=== PATIENT | female | born 1965 | race Caucasian/White ===

== ENCOUNTER → 2022-02-26 14:14 | Outpatient (BNVA) | payer OTHER, SELFPAY | PROVIDERS: Visit Provider Internal Medicine | DX: Z13.89 Encounter for screening for other disorder (principal) | CPT/HCPCS: 73610; 99203 ==

== ENCOUNTER → 2022-03-01 14:25 | Outpatient (BNVA) | payer OTHER, SELFPAY | PROVIDERS: PCP Internal Medicine; Visit Provider Physician Assistant | DX: S93.401A Sprain of unspecified ligament of right ankle, initial encounter (principal) | CPT/HCPCS: 99202 ==

== ENCOUNTER → 2022-03-22 11:23 | Outpatient (BNVA) | payer OTHER, SELFPAY | PROVIDERS: PCP Internal Medicine; Visit Provider Physician Assistant | DX: S93.401D Sprain of unspecified ligament of right ankle, subsequent encounter (principal) | CPT/HCPCS: 99212 ==

== ENCOUNTER 2022-06-03 08:17 | Outpatient (REF) | payer OTHER, SELFPAY ==
[2022-06-03 08:38] LABS: MANUAL DIFF FLAG NO
[2022-06-03 09:18] LABS: Basophils Percent Auto 0.3 % (0-2); Eosinophils Absolute Auto 0.2 X10*3/uL (0.0-0.4); Eosinophils Percent Auto 2.2 % (0-4); Hematocrit 43.2 % (37.0-47.0); Hemoglobin 14.3 g/dl (12.0-16.0); Imm Gran Abs Auto 0.03 X10*3/uL (0.00-0.03); Imm Gran Pct Auto 0.4 % (0.0-0.4); Lymphocytes Absolute Auto 2.3 X10*3/uL (1.2-4.9); Lymphocytes Percent Auto 33.9 % (20-40); Mean Corpuscular HGB Conc 33.1 g/dl (31.0-35.0); Mean Corpuscular Hemoglobin 29.7 pg (27.0-33.0); Mean Corpuscular Volume 89.6 fL (80.0-98.0); Mean Platelet Volume 10.3 fL (9.4-12.3); Monocytes Absolute Auto 0.7 X10*3/uL (0.1-1.2); Monocytes Percent Auto 9.6 % (2-11); Neutrophils Absolute Auto 3.7 x10*3/uL (2.0-8.3); Neutrophils Percent Auto 53.6 % (45-73); Platelet Count 212 X10*3/uL (160-400); Red Blood Count 4.82 X10*6/uL (4.20-5.50); Red Cell Distribution Width 13.1 % (11.0-16.0); White Blood Count 6.9 X10*3/uL (4.8-10.8)
[2022-06-03 09:23] LABS: Appearance Urine Cloudy; Color Urine Yellow; Glucose Urine UA Negative (Negative); Leukocyte Esterase Urine Negative (Negative); Nitrite Urine Negative (Negative); PH 5.5 (5.0-9.0); Specific Gravity - Urine 1.015 (1.005-1.025); Urine Blood Negative (Negative); Urine Ketones Negative (Negative); Urine Protein Negative (Neg-Trace)
[2022-06-03 09:26] LABS: Estimated Average Glucose 105 mg/dL; Hemoglobin A1c % 5.3 %
[2022-06-03 09:58] LABS: Alanine Aminotransferase 21 U/L (0-31); Albumin Level 4.3 g/dL (3.5-5.0); Alkaline Phosphatase 94 U/L (39-117); Anion Gap 13 (12-20); Aspartate Amino Transferase 20 U/L (5-31); Bilirubin Total 0.6 mg/dL (0.0-1.0); Blood Urea Nitrogen 18 mg/dL (9-16); Calcium 9.2 mg/dL (8.4-10.2); Carbon Dioxide 24 mmol/L (22-29); Chloride 108 mmol/L (96-108); Cholesterol 201 mg/dL; Estimated Glomerular Filt Rate > 60; Glucose Random 104 mg/dL (60-115); HDL Cholesterol 62 mg/dL; LDL Cholesterol Calculated 123 mg/dl; Potassium 4.2 mmol/L (3.3-5.1); Sodium 141 mmol/L (135-145); Total Protein 6.9 g/dL (6.5-8.0); Triglycerides 84 mg/dL
[2022-06-03 10:10] LABS: ~Hepatitis C Antibody Nonreactive (Nonreactive)
[2022-06-03 10:21] LABS: Vitamin D 25-OH Total 28.9 ng/mL (>30)
[2022-06-03 10:28] LABS: Reflex LDLD? No
== END 2022-06-03 08:18 | disposition home or self-care (01) ==
LOC: HO.LAB 08:17
PROVIDERS: PCP Internal Medicine; Visit Provider Internal Medicine
DX: Z00.00 Encounter for general adult medical examination without abnormal findings (principal)
CPT/HCPCS: 36415; 80053; 80061; 81003; 82306; 83036; 85025; 86803

== ENCOUNTER 2022-06-14 07:28 | Outpatient (REF) | payer OTHER, SELFPAY ==
--- NOTE | ~2022-06-14 | MR_ITS ---
EXAMINATION: MR ANGIOGRAPHY BRAIN WITHOUT CONTRAST CLINICAL INFORMATION: Cerebral aneurysm. COMPARISON: Head MRA from 02/07/2021. TECHNIQUE: 3D nqug-nl-sootey MR angiography was performed through the brain without the use of intravenous gadolinium. 3D postprocessing including acquisition of multiplanar MIP reformats are obtained at the technologist workstation and utilized for image interpretation. Stenoses are assessed in accordance with NASCET criteria unless otherwise indicated. FINDINGS: Similar to prior exam, there is a patulous appearance of the M1-M2 junction of the right MCA with 4 distinct branching vessels. There is a minimal 0.1 cm excrescence projecting anteriorly from the M1-M2 junction of the right MCA (unchanged). Otherwise, normal flow-related signal within the anterior circulation without evidence of focal stenosis or occlusion of the intradural internal carotid, middle cerebral, or anterior cerebral arteries. Similar to prior exam, there is minimal 0.1 cm excrescence projecting posteriorly to the left from the basilar tip (unchanged). Otherwise, normal flow-related signal within the posterior circulation without evidence of focal stenosis or occlusion of the intradural vertebral, basilar, superior cerebellar, or posterior cerebral arteries. No demonstrated new intradural aneurysms. No additional significant abnormalities on limited evaluation of the intracranial structures. Mild mucosal thickening of the paranasal sinuses. Mucous retention cyst within the maxillary sinuses. MR/MR angio head wo con IMPRESSION: 1. Similar to prior exam, there are minimal 0.1 cm excrescences projecting from the M1-M2 junction of the right MCA as well as the basilar tip. These may represent tiny aneurysms (unchanged). 2. Otherwise, normal MRA of the head.
== END 2022-06-14 07:29 | disposition home or self-care (01) ==
LOC: HO.MRI 07:28
PROVIDERS: Visit Provider Internal Medicine
DX: I67.1 Cerebral aneurysm, nonruptured (principal)
CPT/HCPCS: 70544

== ENCOUNTER 2023-01-09 14:42 | Outpatient (REF) | payer OTHER, SELFPAY ==
--- NOTE | ~2023-01-09 | MM_ITS ---
EXAMINATION: MM SCREENING DIGITAL BREAST TOMOSYNTHESIS, BILATERAL CLINICAL INFORMATION: Screening. Asymptomatic. The lifetime risk of breast cancer based on the Tyrer-Cuzick Model is 11%. COMPARISON: Mammography: 11/09/2021, 11/07/2020, 09/23/2019 ([facility]) TECHNIQUE: Digital breast tomosynthesis is performed in both the craniocaudal and mediolateral oblique views along with computer-aided detection (CAD). Synthesized 2D images are generated from the tomosynthesis. FINDINGS: The breasts are heterogeneously dense, which may obscure small masses (ACR BI-RADS breast composition Category c). There is a fibronodular parenchymal pattern is similar to prior outside studies. No developing density or architectural abnormality. Accessory breast tissue upper right breast on MLO view is similar to the outside exams. There are no significant masses, abnormal calcifications, or other abnormalities. The axilla and skin contours are unremarkable. MM/MM tomosynthesis screening BI IMPRESSION: No mammographic evidence of malignancy. ASSESSMENT: BI-RADS 2: Benign RECOMMENDATION: Routine annual mammography screening. This patient's information was entered into a reminder system with a target due date for their next mammogram.
== END 2023-01-09 14:43 | disposition home or self-care (01) ==
LOC: HO.MAMMO 14:42
PROVIDERS: PCP Internal Medicine; Visit Provider Internal Medicine
DX: Z12.31 Encounter for screening mammogram for malignant neoplasm of breast (principal)
CPT/HCPCS: 77063; 77067

== ENCOUNTER 2023-06-30 09:47 | Outpatient (REF) | payer OTHER, SELFPAY ==
[2023-06-30 10:10] LABS: MANUAL DIFF FLAG NO
[2023-06-30 10:30] LABS: Basophils Percent Auto 0.2 % (0-2); Eosinophils Absolute Auto 0.2 X10*3/uL (0.0-0.4); Eosinophils Percent Auto 2.4 % (0-4); Hematocrit 39.2 % (37.0-47.0); Imm Gran Abs Auto 0.07 X10*3/uL (0.00-0.03); Imm Gran Pct Auto 0.8 % (0.0-0.4); Lymphocytes Absolute Auto 2.6 X10*3/uL (1.2-4.9); Lymphocytes Percent Auto 28.6 % (20-40); Mean Corpuscular HGB Conc 33.2 g/dl (31.0-35.0); Mean Corpuscular Volume 90.5 fL (80.0-98.0); Monocytes Absolute Auto 0.8 X10*3/uL (0.1-1.2); Monocytes Percent Auto 8.9 % (2-11); Neutrophils Absolute Auto 5.5 x10*3/uL (2.0-8.3); Neutrophils Percent Auto 59.1 % (45-73); Platelet Count 246 X10*3/uL (160-400); Red Blood Count 4.33 X10*6/uL (4.20-5.50); Red Cell Distribution Width 13.4 % (11.0-16.0); White Blood Count 9.2 X10*3/uL (4.8-10.8)
[2023-06-30 10:48] LABS: Estimated Average Glucose 103 mg/dL; Hemoglobin A1c % 5.2 % (<6.0)
[2023-06-30 11:16] LABS: Cholesterol 186 mg/dL (<200); HDL Cholesterol 50 mg/dL (>40); LDL Cholesterol Calculated 120 mg/dL (<100); Triglycerides 83 mg/dL (<150)
[2023-06-30 11:24] LABS: Alanine Aminotransferase 66 U/L (0-31); Alkaline Phosphatase 99 U/L (39-117); Anion Gap 10 (12-20); Aspartate Amino Transferase 38 U/L (5-31); Bilirubin Total 0.5 mg/dL (0.0-1.0); Blood Urea Nitrogen 15 mg/dL (9-16); Calcium 9.1 mg/dL (8.4-10.2); Carbon Dioxide 26 mmol/L (22-29); Chloride 109 mmol/L (96-108); Estimated Glomerular Filt Rate > 60; Glucose Random 98 mg/dL (60-115); Sodium 141 mmol/L (135-145); Total Protein 7.1 g/dL (6.5-8.0)
[2023-06-30 11:28] LABS: Vitamin D 25-OH Total 36.8 ng/mL (>30)
[2023-06-30 11:44] LABS: Reflex LDLD? No
[2023-06-30 11:48] LABS: Appearance Urine Clear; Color Urine Yellow; Glucose Urine UA Negative (Negative); Leukocyte Esterase Urine Negative (Negative); Nitrite Urine Negative (Negative); PH 5.5 (5.0-9.0); Specific Gravity - Urine 1.025 (1.005-1.025); Urine Blood Negative (Negative); Urine Ketones Negative (Negative); Urine Protein Negative (Neg-Trace)
[2023-06-30 11:53] LABS: ~Hepatitis C Antibody Nonreactive (Nonreactive)
== END 2023-06-30 09:48 | disposition home or self-care (01) ==
LOC: HO.LAB 09:47
PROVIDERS: Visit Provider Internal Medicine
DX: Z00.00 Encounter for general adult medical examination without abnormal findings (principal); Z11.59 Encounter for screening for other viral diseases; R73.01 Impaired fasting glucose; E55.9 Vitamin D deficiency, unspecified
CPT/HCPCS: 36415; 80053; 80061; 81003; 82306; 83036; 85025; 86803

== ENCOUNTER 2023-08-11 15:14 | Outpatient (REF) | payer OTHER, SELFPAY ==
--- NOTE | ~2023-08-11 | MR_ITS ---
EXAMINATION: MR ANGIOGRAPHY BRAIN WITHOUT CONTRAST CLINICAL INFORMATION: Cerebral aneurysm. COMPARISON: Head MRA from 06/14/2022 and 02/07/2021. TECHNIQUE: 3D qukj-rh-mrqaoz MR angiography was performed through the brain without the use of intravenous gadolinium. 3D postprocessing including acquisition of multiplanar MIP reformats are obtained at the technologist workstation and utilized for image interpretation. Stenoses are assessed in accordance with NASCET criteria unless otherwise indicated. FINDINGS: Similar to prior exam, there is a mildly patulous appearance of the M1-M2 junction of the right MCA with 4 distinct branching vessels. Redemonstrated minimal 0.1 cm excrescence projecting anteriorly from the M1-M2 junction of the right MCA (unchanged). Mild atherosclerotic irregularity of the proximal petrous segment of the left internal carotid artery. Otherwise, normal flow-related signal within the anterior circulation without evidence of focal stenosis or occlusion of the intradural internal carotid, middle cerebral, or anterior cerebral arteries. Redemonstrated minimal 0.1 cm excrescence projecting posteriorly and to the left from the basilar tip (unchanged). Otherwise, normal flow-related signal within the posterior circulation without evidence of focal stenosis or occlusion of the intradural vertebral, basilar, superior cerebellar, or posterior cerebral arteries. No demonstrated new intradural aneurysms. No additional significant abnormalities on limited evaluation of the intracranial structures. Mild mucosal thickening of the paranasal sinuses. Mucous retention cysts within the maxillary sinuses. MR/MR angio head wo con IMPRESSION: 1. Similar to prior exam, there are minimal 0.1 cm excrescences projecting from the M1-M2 junction of the right MCA and the basilar tip. These may represent tiny aneurysms (unchanged). 2. Otherwise, MRA of the head without flow-limiting stenosis or occlusion.
== END 2023-08-11 15:15 | disposition home or self-care (01) ==
LOC: HO.MRI 15:14
PROVIDERS: PCP Internal Medicine; Visit Provider Internal Medicine
DX: I67.1 Cerebral aneurysm, nonruptured (principal)
CPT/HCPCS: 70544

== ENCOUNTER → 2024-01-12 15:00 | Outpatient (BNV) | payer OTHER, SELFPAY | PROVIDERS: PCP Internal Medicine; Visit Provider Radiology Diagnostic Radiology | DX: Z12.31 Encounter for screening mammogram for malignant neoplasm of breast (principal) | CPT/HCPCS: 77063; 77067 ==

== ENCOUNTER 2024-01-12 15:05 | Outpatient (REF) | payer OTHER, SELFPAY | END 2024-01-12 15:06 | disposition home or self-care (01) | LOC: HO.MAMMO 15:05 | PROVIDERS: PCP Internal Medicine; Visit Provider Internal Medicine | DX: Z12.31 Encounter for screening mammogram for malignant neoplasm of breast (principal) | CPT/HCPCS: 77063; 77067 ==

== ENCOUNTER 2024-06-22 08:10 | Outpatient (REF) | payer OTHER, SELFPAY ==
[2024-06-22 08:56] LABS: MANUAL DIFF FLAG NO
[2024-06-22 09:23] LABS: Basophils Percent Auto 0.5 % (0-2); Eosinophils Absolute Auto 0.2 X10*3/uL (0.0-0.4); Eosinophils Percent Auto 2.8 % (0-4); Hematocrit 42.5 % (37.0-47.0); Hemoglobin 14.1 g/dl (12.0-16.0); Imm Gran Abs Auto 0.03 X10*3/uL (0.00-0.03); Imm Gran Pct Auto 0.5 % (0.0-0.4); Lymphocytes Absolute Auto 2.1 X10*3/uL (1.2-4.9); Lymphocytes Percent Auto 32.3 % (20-40); Mean Corpuscular HGB Conc 33.2 g/dl (31.0-35.0); Mean Corpuscular Hemoglobin 30.5 pg (27.0-33.0); Monocytes Absolute Auto 0.7 X10*3/uL (0.1-1.2); Monocytes Percent Auto 10.6 % (2-11); Neutrophils Absolute Auto 3.4 x10*3/uL (2.0-8.3); Neutrophils Percent Auto 53.3 % (45-73); Platelet Count 224 X10*3/uL (160-400); Red Blood Count 4.62 X10*6/uL (4.20-5.50); Red Cell Distribution Width 13.5 % (11.0-16.0); White Blood Count 6.3 X10*3/uL (4.8-10.8)
[2024-06-22 09:26] LABS: Appearance Urine Cloudy; Color Urine Yellow; Glucose Urine UA Negative (Negative); Leukocyte Esterase Urine Negative (Negative); Nitrite Urine Negative (Negative); PH 5.5 (5.0-9.0); Specific Gravity - Urine 1.025 (1.005-1.025); Urine Blood Negative (Negative); Urine Ketones Negative (Negative); Urine Protein Negative (Neg-Trace)
[2024-06-22 09:39] LABS: Estimated Average Glucose 105 mg/dL; Hemoglobin A1c % 5.3 % (<6.0); Total Hemoglobin (HGBA1C) 3695.7738 umol/L
[2024-06-22 10:53] LABS: Alanine Aminotransferase 23 U/L (0-31); Alkaline Phosphatase 93 U/L (39-117); Anion Gap 12 (12-20); Aspartate Amino Transferase 23 U/L (5-31); Bilirubin Total 0.5 mg/dL (0.0-1.0); Blood Urea Nitrogen 13 mg/dL (9-16); Carbon Dioxide 23 mmol/L (22-29); Chloride 111 mmol/L (96-108); Estimated Glomerular Filt Rate > 60; Glucose Random 96 mg/dL (60-115); HDL Cholesterol 56 mg/dL (>40); Potassium 4.1 mmol/L (3.3-5.1); Sodium 142 mmol/L (135-145); Total Protein 6.8 g/dL (6.5-8.0); Vitamin D 25-OH Total 30.5 ng/mL (>30)
[2024-06-22 11:00] LABS: HBS Num1 39.21 mIU/mL (0-7.99); HBsAGNum1 0.34 S/CO (0.00-0.99); Hepatitis B Surface Antigen Negative (Negative); ~HepC Num1 0.06 S/CO (0.00-0.79); ~Hepatitis B Surface Antibody REACTIVE (Nonreactive); ~Hepatitis C Antibody Nonreactive (Nonreactive)
[2024-07-05 08:40] LABS: Lipoprotein Asso Phospholip A2 94; Liver Fibrosis Interpretation no fibrosis; Liver Fibrosis Score 0.11; Liver Fibrosis Stage F0; Nec Inflam Act Grade A0; Nec Inflam Act Interpretation no activity; Nec Inflam Act Score 0.04
[2024-07-05 08:41] LABS: FIB-Alpha-2-Macroglobulin 164; FIB-Apolipoprotein A1 156; FIB-Haptoglobin 142
[2024-07-05 08:42] LABS: FIB-ALT 15; FIB-GGT 26; FIB-Total Bilirubin 0.4
[2024-07-05 08:43] LABS: Reference ID 5219966
[2024-07-05 08:44] LABS: Phosphatidylethanol 16:0-18:1 NEGATIVE; Phosphatidylethanol 16:0-18:2 NEGATIVE
== END 2024-06-22 08:11 | disposition home or self-care (01) ==
LOC: HO.LAB 08:10
PROVIDERS: Visit Provider Internal Medicine
DX: Z00.00 Encounter for general adult medical examination without abnormal findings (principal); E55.9 Vitamin D deficiency, unspecified; R73.01 Impaired fasting glucose; Z11.59 Encounter for screening for other viral diseases; K75.81 Nonalcoholic steatohepatitis (NASH); Z72.89 Other problems related to lifestyle
CPT/HCPCS: 36415; 80053; 80321; 81003; 81596; 82306; 83036; 83698; 83718; 85025; 86706; 86803; 87340

== ENCOUNTER 2024-07-08 10:51 | Outpatient (REF) | payer OTHER, SELFPAY | END 2024-07-08 10:52 | disposition home or self-care (01) | LOC: HO.MRI 10:51 | PROVIDERS: PCP Internal Medicine; Visit Provider Internal Medicine | DX: I67.1 Cerebral aneurysm, nonruptured (principal) | CPT/HCPCS: 70544 ==

== ENCOUNTER → 2024-09-07 08:45 | Outpatient (BNV) | payer OTHER, SELFPAY | PROVIDERS: PCP Internal Medicine; Visit Provider Radiology Diagnostic Radiology | DX: E28.39 Other primary ovarian failure (principal) | CPT/HCPCS: 77080 ==

== ENCOUNTER 2024-09-07 08:54 | Outpatient (REF) | payer OTHER, SELFPAY ==
--- NOTE | ~2024-09-07 | MM_ITS ---
EXAMINATION: DXA BONE DENSITY AXIAL HISTORY: Estrogen deficiency TECHNIQUE: [employer] Dual energy absorptiometry (DEXA) of the lumbar spine, total left hip, and femoral neck was performed. COMPARISON: There are no prior studies for comparison. FINDINGS: The bone mineral density of the lumbar spine is 1.049 with a T-score of -1.1, and a Z-score of -0.4. The bone mineral density of the left total hip is 0.939 with a T-score of -0.5, and a Z-score of 0.0. The bone mineral density of the left femoral neck is 0.850 with a T-score of -1.4, and a Z-score of -0.5. FRACTURE RISK: The FRAX index suggests a risk of major osteoporotic fracture of 7.0%, and of hip fracture 0.5%. MM/XR DEXA axial skeleton IMPRESSION: Based on bone mineral density, and according to World Health Organization (WHO) criteria, the diagnosis is consistent with osteopenia. All bone density values are in grams per centimeter squared (g/cm2). Statistically, 68% of repeat scans fall within 1 SD (+/- 0.010 g/cm2 for AP spine L1-L4) and 1 SD (+/- 0.012 g/cm2 for femur total) FRAX is a trademark of the [employer]'s [employer] Met[employer] Disease, a World Health Organization (WHO) Collaborating Center. Electronically signed by: Sven Sanford MD 09/09/2024 07:42 AM EST
== END 2024-09-07 08:55 | disposition home or self-care (01) ==
LOC: HO.MAMMO 08:54
PROVIDERS: PCP Internal Medicine; Visit Provider Internal Medicine
DX: Z13.820 Encounter for screening for osteoporosis (principal); E28.319 Asymptomatic premature menopause
CPT/HCPCS: 77080

== ENCOUNTER 2025-01-17 15:02 | Outpatient (REF) | payer OTHER, SELFPAY ==
--- OUTSIDE RECORDS SUMMARY | 2025-01-17 16:48 | XMS_ITS | Patient Health Record ---
Author Organization [facility] Address [address] [place] [phone] Care Team Providers Care Brine Well Operator Name Role Phone [facility] Primary Care Provider Maira Young Unavailable [phone] Allergies Allergen (clinical drug ingredient) Drug/Non Drug Allergy documented on EMR Reaction Allergy Type Onset Date Status bee sting (uncoded) Unknown Allergy Active Results Component Value Reference Range Notes [facility] Dexa Axial Skeleton Reviewed date:09/09/2024 03:14:38 PM Interpretation: Performing Lab: Notes/Report: [facility] Dexa Axial Skeleton Reviewed date:09/09/2024 03:14:38 PM Interpretation: Performing Lab: Notes/Report: Reason For Referral No Information Medications Medication SIG (Take, Route, Frequency, Duration) Notes Start Date End Date Status Jublia 10 % 1 application Externally Once a day for 90 days 12/20/2024 12/15/2025 Active Ativan 1 MG 1 tablet as needed Orally Once a day for 7 days 01/11/2025 Active Vitamin D3 2000 UNIT 1 capsule Orally On ce a day for 30 Not-Taking EpiPen 2-Harsh 0.3 MG/0.3ML as directed Injection as neded for 2 days Active Cetirizine HCl 10 MG 1 tablet Orally Onc e a day for 30 day(s) Active Ubrelvy 100 MG TAKE 1 TABLET BY LESLI TH EVERY DAY ONCE A DAy 30 DAYS PER INSURANCE for 30 Active Immunizations Vaccine Route Administration Date Status Comme nts *Tdap Unknown 08/21/2007 Administered COVID COMIRNATY Pfizer Unknown 08/14/2023 Administered COVID-19 Pfizer BiValent Booster Unknown 06/07/2022 Administered TSWAB-17-Utjkmyh Vaccine Unknown 07/26/2021 Administere d JJJTZ-04-Prowav Vaccine Unknown 08/22/2020 Administered SWJKY-87-Kttbos Vaccine Unknown 09/12/2020 Administered Hep A, adult Unknown 08/06/2019 Administered Hep A, adult Unknown 02/14/2020 Administered Hep B, adult (2 dose schedule) Unknown 01/16/1995 Administered Influenza IM Intramuscular 05/20/2017 Administered Influenza IM Intramuscular 05/25/2018 Administered Influenza Unknown 05/03/2019 Administered Influenza IM Intramuscular 04/25/2020 Administered Influenza (split), 3 yrs and above Unknown 05/07/2024 Administered Influenza Vaccine, Seasonal, Quadrivalent, Recombinant, Preservative Free Unknown 05/08/2023 Administered Influenza-Afluria (IIV4) Unknown 05/09/2022 Administere d Influenza-Afluria (IIV4) Unknown 05/08/2023 Administere d Rubella (CVX 94) Unknown 11/03/1970 Administered Td (adult) preservative free Unknown 02/18/2002 Administered Td (adult) preservative free Unknown 08/04/2006 Administered Td (adult) preservative free IM Intramuscular 01/19/2018 Administered Td (adult) preservative free Unknown 01/25/2019 Pending Social History Tobacco Use: Social History Observation Description Date Details (start date - stop date) Former Smoker NA - NA AUDIT-C (Standard) Question Answer Notes Did you have a drink contain ing alcohol in the past year? Yes How often did you have six o r more drinks on one occasion in the past year? Never (0 point) How many drinks did you have on a typical day when you were drinking in the past year? 1 or 2 drinks (0 point) How often did you have a dri nk containing alcohol in the past year? 2 to 4 times a month (2 points) Points 2 Interpretation Negative Tobacco Control (Standard) Question Answer Notes Tobacco use: Former smoker How long has it been since you last smoked? 5-10 years Problems Problem Type SNOMED Code ICD Code Onset Dates Problem Status W/U Status Risk Notes Problem Premature menopause (530630315) Asymptomatic premature menopause (E28.319) Active confirmed Problem Vitamin D deficiency (44216590) Vitamin D deficiency, unspecified (E55.9) Active confirmed Problem Tobacco user (828193982) Nicotine dependence, cigarettes, in remission (F17.211) Active confirmed Problem Migraine without aura (80583570) Migraine without aura, not intractable, with status migrainosus (G43.001) Active confirmed Problem Nonruptured cerebral aneurysm (56059483) Cerebral aneurysm, nonruptured (I67.1) Active confirmed Problem 087531349 Nonalcoholic steatohepatitis (MUNOZ) (K75.81) Active confirmed Problem Cervical radiculopathy (77231269) Radiculopathy, cervical region (M54.12) Active confirmed Problem Impaired fasting glucose (261516606) Impaired fasting glucose (R73.01) Active confirmed Problem Irritable bowel syndrome characterized by constipation (905150521) Irritable bowel syndrome with constipation (K58.1) Active confirmed Problem Cervicalgia (69829720) Cervicalgia (M54.2) Inactive confirmed Problem Derangement of anterior horn of medial meniscus (8863464) Derangement of anterior horn of medial meniscus due to old tear or injury, left knee (M23.212) Problem resolved confirmed Vital Signs Heart Rate 86 /min 06/21/2024 Temperature 96.4 degrees Fahrenheit 06/21/2024 Blood pressure diastolic 68 mm Hg 06/21/2024 Oximetry 98 % 06/21/2024 Height 5 ft 5 in in 06/21/2024 Blood pressure systolic 116 mm Hg 06/21/2024 Weight 173 lbs 06/21/2024 BMI 28.79 kg/m2 06/21/2024 Encounters Encounter Location Date Provider Diagnosis [facility] [address] [id number] 06/21/2024 [facility] Encounter for genera l adult medical examination without abnormal findings Z00.00 ; Cerebral aneurysm, nonruptured I67.1 ; Migraine without aura, not intractable, with status migrainosus G43.001 ; Nonalcoholic steatohepatitis (MUNOZ) K75.81 ; Impaired fasting glucose R73.01 ; Nicotine dependence, cigarettes, in remission F17.211 ; Vitamin D deficiency, unspecified E55.9 ; Encounter for screening for malignant neoplasm of colon Z12.11 ; Encounter for screening mammogram for malignant neoplasm of breast Z12.31 ; Encounter for screening for osteoporosis Z13.820 ; Encounter for screening for cardiovascular disorders Z13.6 ; Encounter for immunization Z23 ; Encounter for antibody response examination Z01.84 ; Encounter for screening for other viral diseases Z11.59 and Asymptomatic premature menopause E28.319 [facility] [address] [place] [address] [id number] 01/20/2024 [facility] [address] [facility] [address] [place] [address] [id number] 05/11/2024 [facility] [address] [facility] [address] [place] [address] [id number] 08/02/2024 Paddy Chavez Migraine without aur a, not intractable, with status migrainosus G43.001 [facility] [address] [facility] [address] [place] [address] [id number] 08/03/2024 [facility] [address] [facility] [address] [place] [address] [id number] 08/11/2024 [facility] [address] [facility] [address] [place] [address] [id number] 12/24/2024 [facility] [address] [facility] [address] [place] [address] [id number] 01/21/2024 [facility] [address] [facility] [address] [place] [address] [id number] 03/08/2024 [facility] [address] [facility] [address] [place] [address] [id number] 03/15/2024 [facility] [address] [facility] [address] [place] [address] [id number] 03/16/2024 Paddy Chavez Migraine without aur a, not intractable, with status migrainosus G43.001 [facility] [address] [facility] [address] [place] [address] [id number] 03/30/2024 [facility] [address] [facility] [address] [place] [address] [id number] 04/23/2024 [facility] [address] [facility] [address] [place] [address] [id number] 04/23/2024 [facility] [address] [facility] [address] [place] [address] [id number] 05/07/2024 [facility] [address] [facility] [address] [place] [address] [id number] 08/03/2024 aPddy Chavez Migraine without aur a, not intractable, with status migrainosus G43.001 [facility] [address] [id number] 08/09/2024 P[facility] MD [address] [id number] 08/23/2024 [facility] MD [address] [id number] 09/27/2024 Maira Chavez MD [address] [id number] 11/08/2024 Paddy [facility] MD [address] [id number] 12/20/2024 Paddy Ch[facility] MD [address] [id number] 01/11/2025 Paddy Chavez Assessments Encounter Date Diagnosis (ICD Code) Assessment Notes Treatment Notes Treatment Clinical Notes Section Notes 03/16/2024 Migraine without aura, not intractable, with status migrainosus (ICD-10 - G43.001) 06/21/2024 Cerebral aneurysm, nonruptured (ICD-10 - I67.1) Stable at present. She is no longer smoking. She is not sure if she had an MRA this year. Need to reschedule that if she has not 06/21/2024 Encounter for general adult medical examination without abnormal findings (ICD-10 - Z00.00) General healthcare up-to-date. Check routine labs 08/02/2024 Migraine without aura, not intractable, with status migrainosus (ICD-10 - G43.001) 08/03/2024 Migraine without aura, not intractable, with status migrainosus (ICD-10 - G43.001) 06/21/2024 Migraine without aura, not intractable, with status migrainosus (ICD-10 - G43.001) Controlled with abortive therapy. Continue current therapy. She does not wish to have prophylactic therapy. She does not feel her migraines are problematic enough to warrant prophylactic therapy 06/21/2024 Nonalcoholic steatohepatitis (MUNOZ) (ICD-10 - K75.81) Her ALT was elevated. Can recheck labs and additional evaluation for fibrosis risk 06/21/2024 Impaired fasting glucose (ICD-10 - R73.01) Stable on prior labs reviewed. Recheck status 06/21/2024 Nicotine dependence, cigarettes, in remission (ICD-10 - F17.211) Remainns in remission 06/21/2024 Vitamin D deficiency, unspecified (ICD-10 - E55.9) Check level to verify that there is no deficiency and would consider vitamin D supplementation for goal level of 30+ 06/21/2024 Encounter for screening for malignant neoplasm of colon (ICD-10 - Z12.11) Up-to-date on colon cancer screening 06/21/2024 Encounter for screening mammogram for malignant neoplasm of breast (ICD-10 - Z12.31) Up-to-date on breast cancer screening 06/21/2024 Encounter for screening for osteoporosis (ICD-10 - Z13.820) Could consider osteoporosis screening given her thin frame and ethnicity and increased risk for osteoporosis 06/21/2024 Encounter for screening for cardiovascular disorders (ICD-10 - Z13.6) Blood pressure stable. Can check for comorbidity of hyperlipidemia and hyperglycemia to further assess risk 06/21/2024 Encounter for immunization (ICD-10 - Z23) Vaccines up-to-date 06/21/2024 Encounter for antibody response examination (ICD-10 - Z01.84) Titers have been checked in the past and there is immunity to rubeola 06/21/2024 Encounter for screening for other viral diseases (ICD-10 - Z11.59) Can screen for hepatitis C as per general recommendation 06/21/2024 Asymptomatic premature menopause (ICD-10 - E28.319) 06/21/2024 Other This note was created with voice dictation recognition software and may contain errors of grammar and syntax. Also labs were reviewed with patient. Plan Of Treatment Pending Test Test Name Order Date 25OH VITAMIN D 06/16/2023 25OH VITAMIN D 05/27/2022 COMPLETE CBC WITH DIFF 05/27/2022 COMPLETE CBC WITH DIFF 06/16/2023 COMPLETE URINALYSIS 06/16/2023 COMPLETE URINALYSIS 05/27/2022 COMPREHENSIVE METABOLIC PANEL 05/27/2022 COMPREHENSIVE METABOLIC PANEL 06/16/2023 HEMOGLOBIN A1C 05/27/2022 HEMOGLOBIN A1C 06/16/2023 LIPID PANEL W REFLEX TO DLDL 06/16/2023 LIPID PANEL W REFLEX TO DLDL 05/27/2022 MM Digital Mammo Screening 06/16/2023 MRA Head W/O Contrast 06/16/2023 MR Brain Angiography WO 06/21/2024 ANTI-HEPATITIS C W/RFLX HCV QNT 05/27/20 22 ANTI-HEPATITIS C W/RFLX HCV QNT 06/16/20 23 Hemoglobin W3s-[id number] 06/21/2024 Urinalysis, Complete-[id number] 06/21/2024 CBC With Differential/Platelet-[id number] HBsAg Screen-[id number] 06/21/2024 Hepatitis B Surf Ab Quant-[id number] 024 Vitamin D, 07-Xabwtls-[id number] 06/21/2024 Comp. Metabolic Panel (14)-[id number] 2023 LP+Non-HDL Cholesterol-[id number] 06/21/2024 FIB-4 w/Rx MUNOZ FibroSure Plus-121319 Phosphatidylethanol (PEth)-967067 2023 HCV Antibody-[id number] 06/21/2024 Next Appt Details Provider Name:Paddy Scott , 07/05/2025 08:30:00 AM, [address] [place] [address], [place] [address], [place], [place], [id number], Insurance Providers Payer Name Payer Address Payer Phone Subscriber Number Group Number Insured Name Patient Relationship to Insured Coverage Start Date Coverage End Date [employer] Nurse s of [employer] [address] [address] [place] [address] [id number] Joan Olvera Self - patient is the insured Medical (General) History Medical History History ICD Code Cervicalgia M54.2 Radiculopathy, cervical region M54.12 Irritable bowel syndrome with constipati on K58.1 Vitamin D deficiency, unspecified E55.9 Hypocalcemia E83.51 Nicotine dependence, cigarettes, with ot her nicotine-induced disorders F17.218 Calculus of ureter N20.1 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
== END 2025-01-17 15:03 | disposition home or self-care (01) ==
LOC: HO.MAMMO 15:02
PROVIDERS: PCP Internal Medicine; Visit Provider Internal Medicine
DX: Z12.31 Encounter for screening mammogram for malignant neoplasm of breast (principal)
CPT/HCPCS: 77063; 77067

== ENCOUNTER → 2025-01-17 15:15 | Outpatient (BNV) | payer OTHER, SELFPAY | PROVIDERS: PCP Internal Medicine; Visit Provider Internal Medicine | DX: Z12.31 Encounter for screening mammogram for malignant neoplasm of breast (principal) | CPT/HCPCS: 77063; 77067 ==

== ENCOUNTER 2025-04-07 11:30 | Outpatient (REF) | payer OTHER, SELFPAY ==
--- NOTE | ~2025-04-07 | MR_ITS ---
CLINICAL HISTORY: RADICULOPATHY MR lumbar spine without gadolinium Comparison: None Findings: No scoliosis or spondylolisthesis. No acute fracture or pathologic bone lesion. Cauda equina and conus medullaris within normal limits. Multilevel facet arthropathy with ligamentum flavum buckling and synovial joint effusions. Multilevel right-sided perineural cysts. Circumferential disc bulge with small superimposed central disc protrusion L1-L2. Mild spinal canal narrowing. High-grade foraminal stenoses. Mild disc bulge at L2-L3. Mild bilateral foraminal stenoses. No high-grade spinal canal narrowing. Disc bulge at L3-L4 with mild spinal canal narrowing, [id number]-kuzenwuh left and mild right bilateral foraminal stenoses. Disc bulge at L4-L5 with mild spinal canal narrowing, moderate left and mild right bilateral foraminal stenoses. Mild disc bulge at L5-S1. Fqzf-sh-[id number] bilateral foraminal stenoses. No high-grade spinal canal narrowing. Paraspinous musculature intact. Bilateral T2 hyperintense renal cysts. IMPRESSION: Multilevel lumbar spondylosis with varying degrees of spinal canal narrowing and foraminal stenoses described. This document has been electronically signed by: Vidal Martel MD on 04/07/2025 19:06:49
--- OUTSIDE RECORDS SUMMARY | 2025-04-07 13:13 | XMS_ITS | Clinical Summary ---
Author Organization [facility] Facility Address [address] [address] Care Team Providers Care Legal Director Name Role Phone [facility] MD Primary Care Provider [phone] Social History Tobacco Use Types Packs/Day Years Used Date Smoking Tobacco: Never Assessed Comments Unknown Sex and Gender Information Value Date Recorded Sex Assigned at Not on file Legal Sex Female 4:49 PM EST Gender Identity Not on file Sexual Orientation Not on file Plan of Treatment Health Maintenance Due Date Last Done Comments Breast Cancer Screening 1967 Hepatitis B Vaccine (1 of 3 - 19+ 3-dose series) 05/19 Colorectal Cancer Screening: Annual FOBT 2016 Colorectal Cancer Screening: Colonoscopy 2016 Colorectal Cancer Screening: Sigmoidoscopy 2016 Pneumococcal Vaccine: 50+ Years (1 of 1 - PCV) 017 Influenza Vaccine (#1) 2025 05/20/2017 Care Teams Legal Director Relationship Specialty Start Date End Date Paddy Chavez MD [address] PCP - General 08/14/20
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
== END 2025-04-07 11:31 | disposition home or self-care (01) ==
LOC: HO.MRI 11:30
PROVIDERS: PCP Internal Medicine; Visit Provider Internal Medicine
DX: M54.16 Radiculopathy, lumbar region (principal)
CPT/HCPCS: 72148

== ENCOUNTER → 2025-04-07 11:50 | Outpatient (BNV) | payer OTHER, SELFPAY | PROVIDERS: PCP Internal Medicine; Visit Provider Radiology Diagnostic Radiology | DX: M48.061 Spinal stenosis, lumbar region without neurogenic claudication (principal) | CPT/HCPCS: 72148 ==

== ENCOUNTER 2025-07-29 07:56 | Outpatient (REF) | payer OTHER, SELFPAY ==
--- OUTSIDE RECORDS SUMMARY | 2025-04-21 04:30 | XMS_ITS ---
Author Organization [facility] [place] Address [address] [place] [phone] Care Team Providers Care Systems Project Manager Name Role Phone Paddy [facility] MD Primary Care Provider Unavail Dia Ewing Unavailable [phone] Encounters Encounter Location Date Provider Diagnosis [address] [phone] 04/21/2025 Dia Rocha Plan Of Treatment No Information Progress Notes * Joan BROOKSDOB:[birth year] (60 yo F)Acc No.[id number]:04/21/2025 Progress Notes Patient: Joan GANDHI Provider: Fifi Rocha DPM :1965 A ge:59 Y S ex:Female Date:04/21/2025 Address:[address] [place], [place] [phone] Pcp:Paddy Chavez MD Subjective: * Chief Complaints: * * Medical History: Objective: * Vitals: Assessment: Plan: * Treatment: * Images: * The named appointment provid er may or may not be the originator of this progress note, and it is not deemed complete until electronically signed by the appointment provider. Sign off status: Pending * Provider: Fifi Rocha DPM Date: 0 04/21/2025 Generated for Tsering guevara/Dawood/Salazar on: 09/29/2024 07:59 AM EST
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
--- OUTSIDE RECORDS SUMMARY | 2025-07-29 08:00 | XMS_ITS | Patient Health Record ---
Author Organization [facility] Address [address] [place] [address] Care Team Providers Care Board Handler Name Role Phone Paddy [facility]avez MD Primary Care Provider Unavail able Dia Rocha Unavailable [phone] Reason For Referral No Information Encounters Encounter Location Date Provider Diagnosis [facility] [address] [place] [address] [facility] [address] 02/11/[facility]25 Dia Rocha Plan Of Treatment No Information Insurance Providers Payer Name Payer Address Payer Phone Subscriber Number Group Number Insured Name Patient Relationship to Insured Coverage Start Date Coverage End Date [facility] Others [address] [place] [address] [phone] [id number] Joan Dasilva Self - patient is the insured
[2025-07-29 08:10] LABS: MANUAL DIFF FLAG NO
[2025-07-29 09:33] LABS: Hematocrit 44.3 % (37.0-47.0); Hemoglobin 14.4 g/dl (12.0-16.0); Imm Gran Abs Auto 0.04 X10*3/uL (0.00-0.03); Imm Gran Pct Auto 0.7 % (0.0-0.4); Lymphocytes Absolute Auto 2.0 X10*3/uL (1.2-4.9); Mean Corpuscular HGB Conc 32.5 g/dl (31.0-35.0); Mean Corpuscular Hemoglobin 29.8 pg (27.0-33.0); Mean Corpuscular Volume 91.5 fL (80.0-98.0); NRBC Abs Auto 0.000 X10*3/uL (0.0-0.012); NRBC Pct Auto 0.0 /100WBC (0.0-0.2); Platelet Count 241 X10*3/uL (160-400); Red Blood Count 4.84 X10*6/uL (4.20-5.50); White Blood Count 6.0 X10*3/uL (4.8-10.8)
[2025-07-29 10:09] LABS: Appearance Urine Clear; Glucose Urine UA Negative (Negative); PH 5.5 (5.0-9.0); Specific Gravity - Urine 1.015 (1.005-1.025)
[2025-07-29 10:21] LABS: ~HepC Num1 0.09 S/CO (0.00-0.79); ~Hepatitis C Antibody Nonreactive (Nonreactive)
[2025-07-29 10:27] LABS: Alanine Aminotransferase 25 U/L (0-31); Albumin Level 4.4 g/dL (3.5-5.0); Alkaline Phosphatase 88 U/L (39-117); Anion Gap 13 (12-20); Aspartate Amino Transferase 31 U/L (5-31); Blood Urea Nitrogen 16 mg/dL (9-16); Calcium 9.2 mg/dL (8.4-10.2); Carbon Dioxide 23 mmol/L (22-29); Chloride 109 mmol/L (96-108); Cholesterol 207 mg/dL (<200); Estimated Glomerular Filt Rate > 60; HDL Cholesterol 51 mg/dL (>40); Potassium 4.4 mmol/L (3.3-5.1); Sodium 141 mmol/L (135-145); Total Protein 7.1 g/dL (6.5-8.0); Triglycerides 114 mg/dL (<150)
== END 2025-07-29 07:57 | disposition home or self-care (01) ==
LOC: HO.LAB 07:56
PROVIDERS: PCP Internal Medicine; Visit Provider Internal Medicine
DX: Z00.00 Encounter for general adult medical examination without abnormal findings (principal); Z11.59 Encounter for screening for other viral diseases; E55.9 Vitamin D deficiency, unspecified; R73.01 Impaired fasting glucose; Z13.6 Encounter for screening for cardiovascular disorders
CPT/HCPCS: 36415; 80053; 80061; 81003; 82306; 83036; 85025; 86803